=== PATIENT | female | born 1940 | race Caucasian/White ===

== ENCOUNTER 2018-08-08 11:14 | Outpatient (CLI) | payer MEDICARE ==
--- NOTE | 2018-08-08 12:45 | RAD ---
THREE VIEWS OF TH ELUMBOSACRAL SPINE: COMPARISON: None. HISTORY: Low back pain. FINDINGS: Three views lumbosacral spine show moderate curvature of the spine likely secondary to degenerative c hange. The intervertebral disks are narrowed and moderate osteophytes are seen throughout the lumbar spine. The vertebral bodies demonstrate normal height without fracture or subluxation. Posterior f acet arthrosis is seen in the lower lumbosacral spine. Vascular calcifications are seen in the aorta. IMPRESSION: Moderate degenerative changes of the lumbar spine without acute osseous abnormality. POS: [facility]
== END 2018-08-08 11:15 | disposition home or self-care (01) ==
LOC: SCSRAD 11:14
PROVIDERS: ATTEND Family Medicine
DX: M54.5 Low back pain (principal); M47.816 Spondylosis without myelopathy or radiculopathy, lumbar region
CPT/HCPCS: 72100

== ENCOUNTER 2018-09-01 07:54 | Outpatient (CLI) | payer MEDICARE ==
--- NOTE | 2018-09-01 12:53 | MRI ---
LUMBAR SPINE MRI WITHOUT CONTRAST: CLINICAL HISTORY: Chronic low back pain (M54.5). FINDINGS: There is degenerative marrow edema, compatible with modic type I endplate degeneration at the L4-L5 l evel, with associated disk space narrowing and degenerative disk space edema. There is mild, grade 1 spondylolisthesis at L3-L4. No acute compression fracture. The conus medullaris is normal in morph ology and terminates at the L1 level. There is multilevel moderate bilateral facet osteoarthritis th roughout the lumbar spine. The imaged retroperitoneum demonstrates a small, cortically based cyst at the posterior left kidney. L5-S1: There is a broad-based disk-osteophyte complex, which effaces the ventral thecal sac and prod uces mild central canal stenosis. There is mild crowding of the first left S1 nerve root. Mild left foraminal stenosis is present. No significant right foraminal compromise. L4-L5: There is a broad-based disk osteophyte complex present, asymmetric to the left, with moderate central canal stenosis and impingement of the left L5 nerve root, within the subarticular zone. The re is also crowding of the right L5 nerve root, with moderate right neural foraminal stenosis. There is mild left neural foraminal narrowing. L3-L4: Left asymmetric broad-based disk osteophyte results in mild to moderate central canal stenosi s and crowding of the bilateral traversing L4 nerve roots. There is mild bilateral neural foraminal narrowing. L2-L3: Mild effacement of the ventral thecal sac by broad-based disk bulge. No high-grade foraminal stenosis. L1-L2: Mild central canal narrowing due to broad-based disk osteophyte. There is mild right and min imal left neural foraminal narrowing. IMPRESSION: Multilevel degenerative change throughout the lumbar spine, as outlined above. POS: [facility]
--- NOTE | 2018-09-01 13:26 | MRI ---
MRI THORACIC SPINE WITHOUT CONTRAST: INDICATIONS: History of chronic low back pain. COMPARISON: No comparisons are available. FINDINGS: There is dextroscoliosis of the thoracic spine, centered at the T8-T9 intervertebral level. There is an adjacent area of increased T2 signal abnormality seen within the paraspinal soft tissues, left of the T8 T9 intervertebral level, with associated with T2 hyperintensity and T1 hypointensity within t he paraspinal soft tissues, adjacent to this region. This is best seen on image 57 of series 8, on i mage 18 of series 9, and on image 19 of series 10. This may reflect mild edema within the paraspinal soft tissues, just to adjacent modic endplate degenerative change. A small vascular malformation wi thin this location cannot be entirely excluded. An enlarged lymph node within this region cannot be entirely excluded. No acute fracture is evident. At T1-T2, there is no appreciable central canal or neural foraminal narrowing. At T2-T3, there is mild facet joint degenerative change, greater on the right, but no appreciable alejandrina tral canal or neural foraminal narrowing. At T3-T4, there is moderate right facet joint degenerative change, but no appreciable central canal o r neural foraminal narrowing. At T4-T5, there is no appreciable central canal or neural foraminal narrowing. There is moderate rig ht facet joint degenerative change. At T5-T6, there is no appreciable central canal or neural foraminal narrowing. At T6-T7, there is no appreciable central canal or neural foraminal narrowing. At T7-T8, there is no appreciable central canal or neural foraminal narrowing. At T8-T9, there is a small central disk protrusion without appreciable central canal narrowing. Ther e is no neural foraminal narrowing. At T9-T10, there is no appreciable central canal or neural foraminal narrowing. At T10-T11, there is no appreciable central canal or neural foraminal narrowing. There is moderate f acet joint degenerative change. At T11-T12, there is a small disk osteophyte complex with facet joint degenerative change but no appr eciable central canal or neural foraminal narrowing. At T12-L1, there is no appreciable central canal or neural foraminal narrowing. IMPRESSION: 1. 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 A small central disk protrusion is seen at T8-T9. There is no appreciable central canal or neural foraminal narrowin g. 2. Small T2 hyperintense, T1 hypointense signal abnormalities seen just to the left aspect of the T8 -T9 intervertebral level. Differential considerations include some adjacent subcutaneous edema from disk degenerative disease at T8-T9, a small vascular malformation, or possibly an enlarged lymph node . Dedicated CT of the thorax with intravenous contrast is recommended for further characterization. CTA evaluation of the thorax in 2012 demonstrated no definite abnormality within this region. 3. Dextroscoliosis of the thoracic spine. POS: [facility]
== END 2018-09-01 07:55 | disposition home or self-care (01) ==
LOC: SCSMRI 07:54
PROVIDERS: ATTEND Family Medicine
DX: M54.5 Low back pain (principal); M54.6 Pain in thoracic spine; M47.816 Spondylosis without myelopathy or radiculopathy, lumbar region; M51.84 Other intervertebral disc disorders, thoracic region; M47.814 Spondylosis without myelopathy or radiculopathy, thoracic region; M41.9 Scoliosis, unspecified
CPT/HCPCS: 72146; 72148

== ENCOUNTER 2018-09-04 07:31 | Outpatient (CLI) | payer MEDICARE ==
[2018-09-04] MEDS ORDERED: Iopamidol 370 76% 100 ML VIAL ONE (09:00)
--- NOTE | 2018-09-04 15:44 | CT ---
CHEST CT SCAN WITH IV CONTRAST: History: Abnormal finding on MRI. R91.1 FINDINGS: There is no evidence of mediastinal mass or adenopathy. Three vessel coronary artery calcific disease . No pleural effusion or pericardial effusion. There is a small focus of nonspecific fat stranding in the left paravertebral region at the T8-9 disc level. This corresponds to the area of concern on the prior MRI. There does not appear to be any associated mass or adenopathy or abnormal vascularity in this region specifically. I favor this being some minimal peridiskal edema. There is some thoracic spine dextroscoliosis. IMPRESSION: Small focal area of some fat stranding in the left paravertebral region at the T8-9 disc level, nonsp ecific, but favored to represent some minimal focal peridiskal edema. There is no associated adenopat hy or abnormal vascularity. Three vessel coronary artery calcific disease. Other findings as above. POS: [facility]
== END 2018-09-04 07:32 | disposition home or self-care (01) ==
LOC: SCSCT 07:31
PROVIDERS: ATTEND Family Medicine
DX: R91.1 Solitary pulmonary nodule (principal); I25.10 Atherosclerotic heart disease of native coronary artery without angina pectoris
CPT/HCPCS: 71260; 82565; Q9967

== ENCOUNTER 2018-10-31 10:37 | Outpatient (CLI) | payer MEDICARE ==
--- NOTE | 2018-10-31 11:53 | MRI ---
MRI CERVICAL SPINE WITHOUT CONTRAST: INDICATIONS: Neck pain. Radiation to right upper extremity. TECHNIQUE: Multiplanar, multisequential imaging of the cervical spine obtained. FINDINGS: There are moderate degenerative changes of the mid cervical spine. Loss of disk space is noted at C4 -C5, C5-C6, and C6-C7. Prominent osteophytes are seen anteriorly from these vertebrae with mild ante rior wedging. Slight posterolisthesis at C4-C5 measures approximately 3 mm. The vertebral bodies maintain normal signal with no evidence of edema or acute compression. No significant disk bulge or spondylosis at C2-C3. At C3-C4, minimal disk bulge and spondylosis, mildly effacing the anterior subarachnoid space. No co rd compression or cervical canal stenosis. The foramina are patent. At C4-C5, slight posterolisthesis, as described above, with posterior disk bulge and spondylosis, whi ch impinges on and mildly flattens the anterior cord. Mild bilateral foraminal narrowing due to face t and uncinate hypertrophy. At C5-C6, posterior disk bulge and spondylosis abut the anterior cord. Right foraminal encroachment due to facet and uncinate hypertrophy. At C6-C7, posterior disk bulge and spondylosis efface the anterior subarachnoid space. No significan t cord impingement. Mild foraminal encroachment bilaterally due to uncinate hypertrophy. The cord signal is normally maintained. IMPRESSION: Degenerative disk changes are prominent at C4-C5, C5-C6, and C6-C7. Posterior spondylosis and disk b ulge at these levels are noted, as described above. POS: [facility]
== END 2018-10-31 10:38 | disposition home or self-care (01) ==
LOC: SCSMRI 10:37
PROVIDERS: ATTEND Anesthesiology Pain Medicine
DX: M48.02 Spinal stenosis, cervical region (principal); M50.321 Other cervical disc degeneration at C4-C5 level; M47.812 Spondylosis without myelopathy or radiculopathy, cervical region; M50.91 Cervical disc disorder, unspecified, high cervical region
CPT/HCPCS: 72141